=== PATIENT | male | born 1970 | race Caucasian/White ===

== ENCOUNTER 2016-03-29 12:05 | Day surgery (SDC) | payer BC ==
[~2016-03-29] VITALS: Ht 170.2 cm; Wt 115.7 kg
[~2016-03-29 12:05] MED LIST: ADVIL200 MG PO; CIPRO500 MG PO; COLACE100 MG PO; CYMBALTA30 MG PO; DESYREL 150 MG150 MG PO; DULCOLAX5 MG PO; FLEXERIL10 MG PO; FLOMAX0.4 MG PO; GABAPENTIN PO; HYDROCODON-ACE1 EAC5 PO; LEVOTHYROXINE137 MCG PO; LO-DOSE ASPIRIN81 M1 PO; NEURONTIN300 MG PO; NEURONTIN400 MG PO; NITROSTAT0.4 MG SL; OXAYDO5 MG PO; PERCOCET 5/31 TABLET PO; REQUIP2 MG PO; SYNTHROID137 MCG PO; SYNTHROID150 MCG PO; ZOFRAN4 MG PO
[2016-03-29 12:57] VITALS: BP 145/91
[2016-03-29 16:45] VITALS: BP 137/80
[2016-03-29 18:00] VITALS: BP 137/79
== END 2016-03-29 18:25 | disposition home or self-care (01) ==
LOC: SDC 12:05
DX: N20.1 Calculus of ureter (principal); G90.50 Complex regional pain syndrome I, unspecified; E03.9 Hypothyroidism, unspecified; G47.33 Obstructive sleep apnea (adult) (pediatric); G25.81 Restless legs syndrome; M54.5 Low back pain
CPT/HCPCS: 74000; 74420; C1876; J0690; J1170; J2250; J2405; J2765; J3010; J7050

== ENCOUNTER 2016-06-14 22:54 | Emergency (ER) | payer BC ==
[~2016-06-14] VITALS: Ht 170.2 cm; Wt 116.4 kg
[2016-06-14 23:24] LABS: HEMATOCRIT 45.5 % (38.0-50.0); MCH 28.5 PG (29.0-34.0); MCHC 32.3 G/DL (30.0-36.0); MCV 88.3 FL (86-99); MEAN PLAT.VOLUME 10.8 uM^3 (9.0-12.4); PLATELET COUNT 183 K/uL (156-360); RBC DIS.WIDTH-CV 14.9 % (11.8-14.6); RBC DIS.WIDTH-SD 48.6 % (39-53); RED BLOOD COUNT 5.15 M/uL (4.00-5.50); WHITE BLOOD COUNT 13.8 K/uL (4.1-10.2)
[2016-06-14 23:32] LABS: CHLORIDE 107 mEq/L (99-109); POTASSIUM 4.1 mEq/L (3.7-5.4); SODIUM 137 mEq/L (136-147)
[2016-06-14 23:34] LABS: GLUCOSE 107 mg/dL (70-99)
[2016-06-14 23:35] LABS: ANION GAP 11 MEQ/L (2-14); INTER. NORMALIZED RATIO 1.2; PROTHROMBIN TIME 12.4 (9.2-11.2); PTT 28.1 (25-32)
[2016-06-14 23:38] LABS: GFR ESTIMATE (CALCULATED) 49 mL/min/
[2016-06-14 23:39] LABS: UREA NITROGEN (BUN) 20 mg/dL (9-23)
[2016-06-14 23:44] LABS: TROP-I INTERPRETATION NEGATIVE; TROPONIN-I < 0.01 ng/mL (0.0-0.30)
[2016-06-15 00:02] LABS: TOTAL BILIRUBIN 0.7 mg/dL (0.0-1.0)
[2016-06-15 00:03] LABS: ALKALINE PHOSPHATASE 69 IU/L (3-129)
[2016-06-15 00:05] LABS: DIRECT BILIRUBIN 0.4 mg/dL (0.0-0.3)
[2016-06-15 00:06] LABS: LIPASE 22 U/L (1.0-51.0)
[2016-06-15 00:07] LABS: CREATINE KINASE 270 IU/L (1-294); TOTAL CK 270 IU/L (1-294)
[2016-06-15 00:12] LABS: CK-MB 2.2 ng/mL (0.0-4.9)
[2016-06-15 00:50] LABS: INTERNAL CONTROL VALID? YES; MONOSPOT (MONONUCLEOSIS SEROL) NEGATIVE
[2016-06-15 02:10] VITALS: BP 110/67
== END 2016-06-15 02:11 | disposition home or self-care (01) ==
LOC: EME 22:54
PROVIDERS: Emergency Medicine
DX: B34.9 Viral infection, unspecified (principal); B17.9 Acute viral hepatitis, unspecified; E86.0 Dehydration; R55 Syncope and collapse; G89.29 Other chronic pain; Z79.891 Long term (current) use of opiate analgesic; Z79.82 Long term (current) use of aspirin; Z87.442 Personal history of urinary calculi
CPT/HCPCS: 71020; 80048; 80076; 81003; 82550; 82553; 83690; 83880; 84484; 85027; 85610; 85730; 86308; 87086; 87502; 93005; 99281; 99285; J1885; J7030